=== PATIENT | male | born 1980 | race Caucasian/White ===

== ENCOUNTER 2019-05-28 08:47 | Emergency (ER) | payer BC ==
[~2019-05-28] VITALS: Ht 193 cm; Wt 122.5 kg
[2019-05-28 09:04] VITALS: BP 126/83
--- NOTE | 2019-05-28 09:22 | PHYS DOC ---
Past Medical History Past Medical History: Diverticulitis, GERD Past Surgical History: Tonsillectomy, Other Additional Past Surgical Histo: ESOPHAGEAL DILATION Alcohol Use: Occasionally Drug Use: Marijuana Adult General Chief Complaint Chief Complaint: FOOT INJURY PAIN HPI HPI Patient is a 39 year old male who presents with was at a concert last night and so there is a lot of people and he tripped and fell. He is complaining of left foot pain. Patient rates his pain a 6 out of 10 and states he did not taking before coming. He is refusing any pain medication at this time. Review of Systems Review of Systems Musculoskeletal: Denies back pain. Left foot joint pain [] All other systems were reviewed and found to be within normal limits, except as documented in this note. Allergies Allergies Allergies Coded Allergies Type Severity Reaction Last Updated Verified No Known Drug Allergies 11/02/13 No Physical Exam Physical Exam Constitutional: Well developed, well nourished, no acute distress, non-toxic patti earance. [] HENT: Normocephalic, atraumatic, bilateral external ears normal, oropharynx moist, no oral exudates, nose normal. [] Eyes: PERRLA, EOMI, conjunctiva normal, no discharge. [] Neck: Normal range of motion, no tenderness, supple, no stridor. [] Cardiovascular:Heart rate regular rhythm, no murmur [] Lungs & Thorax: Bilateral breath sounds clear to auscultation [] Abdomen: Bowel sounds normal, soft, no tenderness, no masses, no pulsatile masses. [] Skin: Warm, dry, no erythema, no rash. [] Back: No tenderness, no CVA tenderness. [] Extremities: Left dorsal foot and pad of foot tenderness, no cyanosis, no clubbing, ROM intact, Left dorsal foot 2+ edema. [] Neurologic: Alert and oriented X 3, normal motor function, normal sensory function, no focal deficits noted. [] Psychologic: Affect normal, judgement normal, mood normal. [] Current Patient Data Vital Signs Vital Signs Date Time Temp Pulse Resp B/P (MAP) Pulse Ox O2 Delivery O2 Flow Rate FiO2 05/28/19 09:04 97.6 84 18 126/83 (97) 96 Room Air 97.6 EKG EKG [] Radiology/Procedures Radiology/Procedures [] Impressions: [facility] [address] [place] [address] IMAGING REPORT Signed [id number] 1980 LOCATION: ER AGE: 39 SEX: M EXAM STATUS: REG ER ORD. PHYSICIAN: JANNETTE CHUN APRN REASON: injury, pain PROCEDURE: FOOT LEFT 3V Examination: 3 views of the left foot HISTORY: History of injury COMPARISON: None available. FINDINGS: The alignment of the tarsal bones, tarsometatarsal joints, tarsophalangeal joints, interphalangeal jointsgrossly appears unremarkable. There is no acute fracture or dislocation identified. Impression: No acute osseous findings Electronically signed by: Rehan Macario MD (05/28/2019 9:37 AM) [facility] DICTATED and SIGNED BY: REHAN MACARIO MD DATE: 05/28/19 0937 Course & Med Decision Making Course & Med Decision Making Patient states when he puts pressure on his left foot he has pain on the pad of his foot. Patient has swelling to the dorsal foot 2+ with tenderness. There is tenderness to the pad of the foot with palpation. There is 2+ swelling to the great toe. Pedal pulses strong and present. Cap refill less than 3 seconds. Skin pink warm and dry. Patient can put pressure on the foot and laboratory with a steady gait. Alert and oriented. Speaks in full clear sentences. Ambulatory with steady gait. Full range of motion of the ankle. No tenderness of palpation to the tib-fib. No tenderness to palpation of the ankle and there is no swelling or deformity. No deformity of the foot. Patient denies numbness or tingling, coldness in the extremity, hitting his head, LOC, abdominal pain, nausea, vomiting, back pain, neck pain. Dragon Disclaimer Dragon Disclaimer This electronic medical record was generated, in whole or in part, using a voice recognition dictation system. Departure Departure Impression: Primary Impression: Foot pain, left Disposition: 01 HOME, SELF-CARE Condition: STABLE Referrals: VAL CONNER MD (PCP) Patient Instructions: Foot Sprain-Brief Additional Instructions: Follow up with primary care provider. Use ice and Ibuprofen for pain. JANNETTE CHUN APRN May 28, 2019 09:22
--- NOTE | 2019-05-28 09:40 | RAD ---
Examination: 3 views of the left foot HISTORY: History of injury COMPARISON: None available. FINDINGS: The alignment of the tarsal bones, tarsometatarsal joints, tarsophalangeal joints, interphalangeal jointsgrossly appears unremarkable. There is no acute fracture or dislocation identified. Impression: No acute osseous findings Electronically signed by: Rehan Macario MD (05/28/2019 9:37 AM) [facility]
== END 2019-05-28 10:04 | disposition home or self-care (01) ==
LOC: ER 08:47
DX: M25.572 Pain in left ankle and joints of left foot (principal); K21.9 Gastro-esophageal reflux disease without esophagitis; F12.90 Cannabis use, unspecified, uncomplicated; Z90.89 Acquired absence of other organs; Z98.890 Other specified postprocedural states
CPT/HCPCS: 29515; 73630; 99284

== ENCOUNTER 2019-12-02 09:17 | Emergency (ER) | payer BC ==
[~2019-12-02] VITALS: Ht 193 cm; Wt 116.8 kg
[2019-12-02] MEDS ORDERED: ONDANSETRON PF 4 MG/2 ML VIAL. IV ONE (09:45)
[2019-12-02] MEDS ORDERED: IV NORMAL SALINE 1000ML BAG 1,000 ML IV ONE (09:45)
[2019-12-02] MEDS ORDERED: fentaNYL PF VIAL 100 MCG/2 ML VIAL IV ONE (09:45)
[2019-12-02] MEDS ORDERED: CONTRAST GIVEN. MC PRN (10:15)
[2019-12-02] MEDS ORDERED: IOHEXOL 300 MG/ML 100ML VIAL. IV ONE (10:15)
[2019-12-02 10:20] LABS: CALCIUM 8.4 mg/dL (8.5-10.1); CREATININE 1.1 mg/dL (0.7-1.3); GFR 74.9; POTASSIUM 4.6 mmol/L (3.5-5.1)
[2019-12-02 10:21] LABS: BASO # 0.1 x10^3/uL (0.0-0.2); BASO % 1 % (0-3); EOS # 0.2 x10^3/uL (0.0-0.7); EOS % 2 % (0-3); HEMATOCRIT 43.3 % (39.0-53.0); HEMOGLOBIN 14.5 g/dL (13.0-17.5); LYMPH # 0.8 x10^3/uL (1.0-4.8); LYMPH % 6 % (24-48); MEAN CORPUSCULAR HEMOGLOBIN 30 pg (25-35); MEAN CORPUSCULAR HGB CONC 34 g/dL (31-37); MEAN CORPUSCULAR VOLUME 90 fL (79-100); MONO # 1.1 x10^3/uL (0.0-1.1); MONO % 8 % (0-9); NEUT # 11.4 x10^3/uL (1.8-7.7); NEUT % 84 % (31-73); PLATELET COUNT 244 x10^3/uL (140-400); RED BLOOD COUNT 4.83 x10^6/uL (4.30-5.70); WHITE BLOOD COUNT 13.6 x10^3/uL (4.0-11.0)
[2019-12-02 10:26] LABS: ALBUMIN/GLOBULIN RATIO 0.8 (1.0-1.7); TOTAL BILIRUBIN 0.1 mg/dL (0.2-1.0); TOTAL PROTEIN 6.9 g/dL (6.4-8.2)
--- NOTE | 2019-12-02 11:14 | RAD ---
CT abdomen and pelvis with contrast 22,020. Reason for exam: Left-sided pain. Helical CT images were performed through the abdomen and pelvis using an infusion of 75 mL Omnipaque 300. No oral contrast was given. Exposure: One or more of the following individualized dose reduction techniques were utilized for this examination: 1. Automated exposure control 2. Adjustment of the mA and/or kV according to patient size 3. Use of iterative reconstruction technique. FINDINGS: There are areas of opacity in the lungs at the upper end of the scan thought most likely to be regions of atelectasis, although they are incompletely demonstrated. The lung bases otherwise are clear. The liver and spleen are homogeneous in density and normal in configuration. Both kidneys enhance with contrast. No mass or obstruction is seen. The adrenal glands are not enlarged. The pancreas appears normal. No enlarged retroperitoneal or mesenteric lymph nodes are seen. There is a fat-containing anterior abdominal wall hernia. There is no apparent abdominal mass. There is some inflammation around the mid descending colon and there is wall thickening of the colon through this region. Some diverticula are visible. The most focal prominent area of inflammation is seen anteriorly where there is a questionable early intramural abscess. No well-formed drainable abscess is seen. Images through the pelvis show no abnormality of the distal ureters or bladder. No pelvic or inguinal adenopathy is seen. There is no apparent pelvic mass or other inflammatory process. IMPRESSION: There is inflammation involving the descending colon. This is thought likely to be related to diverticulitis with possible early intramural abscess formation. Colitis of other type would be a secondary consideration. Electronically signed by: Samm Cabello Jr., MD (12/02/2019 11:11 AM) [id number]
[2019-12-02 11:31] VITALS: BP 127/81
[2019-12-02] MEDS ORDERED: HYDR-3164 PO (11:48)
--- NOTE | 2019-12-02 11:49 | PHYS DOC ---
Past Medical History Past Medical History: Diverticulitis Additional Past Medical Histor: abdominal surgery 5 yrs ago removed approx 10 in of intestines Past Surgical History: Tonsillectomy, Other Additional Past Surgical Histo: ESOPHAGEAL DILATION Smoking Status: Current Every Day Smoker Alcohol Use: Occasionally Drug Use: None General Adult EDM: Chief Complaint: ABDOMINAL PAIN HPI: HPI: Patient is a 39-year-old male with a history of diverticulitis with previous colectomy 8 or 10 years ago. He presents with about 1 week history of left- sided abdominal discomfort he was seen by his primary doctor on just a couple of days ago and started on antibiotics. He is continued to have some discomfort since then. He denies any fever chills or sweats. He has had no nausea or vomiting. He denies any hematochezia. [] Review of Systems: Review of Systems: Constitutional: Denies fever or chills. [] Eyes: Denies change in visual acuity. [] HENT: Denies nasal congestion or sore throat. [] Respiratory: Denies cough or shortness of breath. [] Cardiovascular: Denies chest pain or edema. [] GI: Per HPI. [] : Denies dysuria. [] Musculoskeletal: Denies back pain or joint pain. [] Integument: Denies rash. [] Neurologic: Denies headache, focal weakness or sensory changes. [] Endocrine: Denies polyuria or polydipsia. [] Lymphatic: Denies swollen glands. [] Psychiatric: Denies depression or anxiety. [] Heart Score: Risk Factors: Risk Factors: DM, Current or recent (<one month) smoker, HTN, HLP, family history of CAD, obesity. Risk Scores: Score 0 - 3: 2.5% MACE over next 6 weeks - Discharge Home Score 4 - 6: 20.3% MACE over next 6 weeks - Admit for Clinical Observation Score 7 - 10: 72.7% MACE over next 6 weeks - Early Invasive Strategies Current Medications: Current Medications Medications (Trade) Dose Ordered Sig/Chikis Start Time Stop Time Status Last Admin Dose Admin Fentanyl Citrate (Fentanyl 2ml Vial) 50 mcg 1X ONCE 12/02/19 09:45 12/02/19 09:46 DC 12/02/19 10:07 50 MCG Info (CONTRAST GIVEN -- Rx MONITORING) 1 each PRN DAILY PRN 12/02/19 10:15 12/04/19 10:14 Iohexol (Omnipaque 300 Mg/ml) 75 ml 1X ONCE 12/02/19 10:15 12/02/19 10:16 DC 12/02/19 10:59 75 ML Ondansetron HCl (Zofran) 4 mg 1X ONCE 12/02/19 09:45 12/02/19 09:46 DC 12/02/19 10:07 4 MG Sodium Chloride 1,000 ml @ 1,000 mls/hr 1X ONCE 12/02/19 09:45 12/02/19 10:44 DC 12/02/19 10:06 1,000 MLS/HR Allergies: Allergies: Allergies Coded Allergies Type Severity Reaction Last Updated Verified No Known Drug Allergies 11/02/13 No Physical Exam: PE: Constitutional: Well developed, well nourished, mild distress, non-toxic appearance. [] HENT: Normocephalic, atraumatic, bilateral external ears normal, oropharynx moist, no oral exudates, nose normal. [] Eyes: PERRLA, EOMI, conjunctiva normal, no discharge. [] Neck: Normal range of motion, no tenderness, supple, no stridor. [] Cardiovascular:Heart rate regular rhythm, no murmur [] Lungs & Thorax: Bilateral breath sounds clear to auscultation [] Abdomen: Mild left lower quadrant tender to palp no rebound or guarding. [] Skin: Warm, dry, no erythema, no rash. [] Back: No tenderness, no CVA tenderness. [] Extremities: No tenderness, no cyanosis, no clubbing, ROM intact, no edema. [] Neurologic: Alert and oriented X 3, normal motor function, normal sensory function, no focal deficits noted. [] Psychologic: Affect normal, judgement normal, mood normal. [] Current Patient Data: Labs: Laboratory Tests Test 12/02/19 09:55 White Blood Count 13.6 x10^3/uL (4.0-11.0) H Red Blood Count 4.83 x10^6/uL (4.30-5.70) Hemoglobin 14.5 g/dL (13.0-17.5) Hematocrit 43.3 % (39.0-53.0) Mean Corpuscular Volume 90 fL (79-100) Mean Corpuscular Hemoglobin 30 pg (25-35) Mean Corpuscular Hemoglobin Concent 34 g/dL (31-37) Red Cell Distribution Width 14.0 % (11.5-14.5) Platelet Count 244 x10^3/uL (140-400) Neutrophils (%) (Auto) 84 % (31-73) H Lymphocytes (%) (Auto) 6 % (24-48) L Monocytes (%) (Auto) 8 % (0-9) Eosinophils (%) (Auto) 2 % (0-3) Basophils (%) (Auto) 1 % (0-3) Neutrophils # (Auto) 11.4 x10^3/uL (1.8-7.7) H Lymphocytes # (Auto) 0.8 x10^3/uL (1.0-4.8) L Monocytes # (Auto) 1.1 x10^3/uL (0.0-1.1) Eosinophils # (Auto) 0.2 x10^3/uL (0.0-0.7) Basophils # (Auto) 0.1 x10^3/uL (0.0-0.2) Sodium Level 138 mmol/L (136-145) Potassium Level 4.6 mmol/L (3.5-5.1) Chloride Level 104 mmol/L (98-107) Carbon Dioxide Level 29 mmol/L (21-32) Anion Gap 5 (6-14) L Blood Urea Nitrogen 17 mg/dL (8-26) Creatinine 1.1 mg/dL (0.7-1.3) Estimated GFR (Cockcroft-Gault) 74.9 BUN/Creatinine Ratio 15 (6-20) Glucose Level 105 mg/dL (70-99) H Calcium Level 8.4 mg/dL (8.5-10.1) L Total Bilirubin 0.1 mg/dL (0.2-1.0) L Aspartate Amino Transferase (AST) 15 U/L (15-37) Alanine Aminotransferase (ALT) 23 U/L (16-63) Alkaline Phosphatase 85 U/L (46-116) Total Protein 6.9 g/dL (6.4-8.2) Albumin 3.0 g/dL (3.4-5.0) L Albumin/Globulin Ratio 0.8 (1.0-1.7) L Lipase 99 U/L (73-393) Laboratory Tests 12/02/19 09:55 Laboratory Tests 12/02/19 09:55 Vital Signs: Vital Signs Date Time Temp Pulse Resp B/P (MAP) Pulse Ox O2 Delivery O2 Flow Rate FiO2 12/02/19 10:49 16 98 Room Air 12/02/19 10:30 50 113/72 (86) 12/02/19 09:25 97.8 97.8 EKG: EKG: [] Radiology/Procedures: Radiology/Procedures: []REASON: LLQ Pain PROCEDURE: CT ABD PELV W/ IV CONTRST ONLY CT abdomen and pelvis with contrast 22,020. Reason for exam: Left-sided pain. Helical CT images were performed through the abdomen and pelvis using an infusion of 75 mL Omnipaque 300. No oral contrast was given. Exposure: One or more of the following individualized dose reduction techniques were utilized for this examination: 1. Automated exposure control 2. Adjustment of the mA and/or kV according to patient size 3. Use of iterative reconstruction technique. FINDINGS: There are areas of opacity in the lungs at the upper end of the scan thought most likely to be regions of atelectasis, although they are incompletely demonstrated. The lung bases otherwise are clear. The liver and spleen are homogeneous in density and normal in configuration. Both kidneys enhance with contrast. No mass or obstruction is seen. The adrenal glands are not enlarged. The pancreas appears normal. No enlarged retroperitoneal or mesenteric lymph nodes are seen. There is a fat-containing anterior abdominal wall hernia. There is no apparent abdominal mass. There is some inflammation around the mid descending colon and there is wall thickening of the colon through this region. Some diverticula are visible. The most focal prominent area of inflammation is seen anteriorly where there is a questionable early intramural abscess. No well-formed drainable abscess is seen. Images through the pelvis show no abnormality of the distal ureters or bladder. No pelvic or inguinal adenopathy is seen. There is no apparent pelvic mass or other inflammatory process. IMPRESSION: There is inflammation involving the descending colon. This is thought likely to be related to diverticulitis with possible early intramural abscess formation. Colitis of other type would be a secondary consideration. Course & Med Decision Making: Course & Med Decision Making Pertinent Labs and Imaging studies reviewed. (See chart for details) [ED course: Evaluation reveals a 39-year-old who is being treated for diverticulitis. He is on appropriate antibiotic. He will probably need some pain medicine. I saw the report of a possible early abscess however his physical exam was essentially benign so I think we will give him some pain medicine and have him continue on the antibiotics and certainly if the pain intensifies or he develops fever have encouraged him to come back to the emergency department for further evaluation.] Shanell Disclaimer: Shanell Disclaimer: This electronic medical record was generated, in whole or in part, using a voice recognition dictation system. Departure Departure Impression: Primary Impression: Diverticulitis Disposition: 01 HOME, SELF-CARE Condition: STABLE Referrals: CLARITZA JACKSON [facility]ER (PCP) Patient Instructions: Diverticulitis Additional Instructions: As we discussed, return to the emergency department with increased pain and/or fever. It is vitally important that you take the antibiotics exactly as prescribed. Scripts Hydrocodone/Apap 5-325 (NORCO 5-325 TABLET) 1 Each Tablet 1 TAB PO PRN Q6HRS PRN for PAIN, #15 TAB 0 Refills Prov: HILARIO RUGGIERO DO 12/02/19 Justicifation of Admission Dx: Justifications for Admission: Justification of Admission Dx: No HILARIO RUGGIERO DO Dec 02, 2019 11:49
== END 2019-12-02 11:58 | disposition home or self-care (01) ==
LOC: ER 09:17
DX: K57.32 Diverticulitis of large intestine without perforation or abscess without bleeding (principal); R10.32 Left lower quadrant pain; F17.200 Nicotine dependence, unspecified, uncomplicated; Z90.89 Acquired absence of other organs; Z98.890 Other specified postprocedural states; Z79.899 Other long term (current) drug therapy
CPT/HCPCS: 36415; 74177; 80053; 83690; 85025; 96374; 96375; 99285; J2405; J3010; J7030; Q9967